=== PATIENT | female | born 1965 | race Caucasian/White ===

== ENCOUNTER 2017-01-09 09:00 | Emergency (ER) | payer OTHER ==
[~2017-01-09] VITALS: Ht 167.6 cm; Wt 85.0 kg
[2017-01-09 09:01] VITALS: BP 145/93; PULSE 100; RESP 20; TEMP 99.2; O2SAT 98
[2017-01-09] MEDS ORDERED: OMEP10CA PO (09:30)
[2017-01-09] MEDS ORDERED: ONDANSETRON ODT 4 MG TAB PO ONE (09:30)
[2017-01-09] MEDS ORDERED: oxyCODONE/ACETAMINOPHEN 5 MG/325 MG TAB PO ONE (09:30)
--- NOTE | 2017-01-09 10:27 | RADRPT ---
EXAM DATE/TIME: 01/09/2017 09:36 [facility] COMPARISON: No previous studies available for comparison. INDICATIONS : Fell last night, pain left arm and left side of chest MEDICAL HISTORY : None. SURGICAL HISTORY : None. ENCOUNTER: Initial ACUITY: 1 day PAIN SCORE: 10/10 LOCATION: Left chest FINDINGS: PA and lateral views of the chest demonstrate the lungs to be symmetrically aerated without evidence of mass, infiltrate or effusion. The cardiomediastinal contours are unremarkable. Scoliosis, left m id humerus fracture. CONCLUSION: Left mid humerus fracture. Negative for pneumothorax or displaced rib fracture. Johny Orourke MD FACR on January 09, 2017 at 10:24 Board Certified Radiologist. This report was verified electronically.
--- NOTE | 2017-01-09 10:28 | RADRPT ---
EXAM DATE/TIME: 01/09/2017 09:46 [facility] COMPARISON: No previous studies available for comparison. INDICATIONS : Fell last night, unable to move left arm, severe pain left shoulder to elbow MEDICAL HISTORY : None. SURGICAL HISTORY : None. ENCOUNTER: Initial ACUITY: 1 day PAIN SCORE: 10/10 LOCATION: Left shoulder FINDINGS: Two view examination of the left shoulder demonstrates no evidence of fracture or dislocation. The g lenohumeral and acromioclavicular joints are maintained. Bony mineralization is normal. Left lexi l fracture. CONCLUSION: Left mid humeral fracture with small butterfly fragment. Johny Orourke MD FACR on January 09, 2017 at 10:25 Board Certified Radiologist. This report was verified electronically.
--- NOTE | 2017-01-09 10:29 | RADRPT ---
EXAM DATE/TIME: 01/09/2017 09:48 [facility] COMPARISON: No previous studies available for comparison. INDICATIONS : Fell last night, pain left humerus, unable to move arm MEDICAL HISTORY : None. SURGICAL HISTORY : None. ENCOUNTER: Initial ACUITY: 1 day PAIN SCORE: 10/10 LOCATION: Left humerus FINDINGS: Fractured midshaft humerus with large butterfly fragment evident. CONCLUSION: Humeral fracture as above. Johny Orourke MD FACR on January 09, 2017 at 10:26 Board Certified Radiologist. This report was verified electronically.
--- NOTE | 2017-01-09 10:30 | RADRPT ---
EXAM DATE/TIME: 01/09/2017 09:50 [facility] COMPARISON: No previous studies available for comparison. INDICATIONS : Fell last night, left arm pain, unable to move arm MEDICAL HISTORY : None. SURGICAL HISTORY : None. ENCOUNTER: Initial ACUITY: 1 day PAIN SCORE: 10/10 LOCATION: Left elbow FINDINGS: Artifact is present across the elbow; joint appears intact.. Humerus is fractured CONCLUSION: Humeral fracture. Elbow joint is intact. Johny Orourke MD FACR on January 09, 2017 at 10:27 Board Certified Radiologist. This report was verified electronically.
--- NOTE | 2017-01-09 10:42 | PD ---
HPI Chief Complaint: Fall Time Seen by Provider: 09:13 Travel History International Travel<30 days: No Contact w/Intl Traveler<30days: No Traveled to known affect area: No History of Present Illness HPI Patient is a 51 year old female who comes in complaining of left arm pain after a fall last night. She says she does not really know what happened, but she tripped and fell up the stairs. She says she thinks she landed mostly on her left side and she does report hitting the back of her head. She had one episode of vomiting last night. She denies any chest pain or SOB. She says she has a bruise on her abdomen, but otherwise does not have abdominal pain. She denies neck or back pain or any numbness or tingling in her extremities. [facility] Past Medical History GERD: Yes ?: Not LMP: 1991 Past Surgical History Abdominal Surgery: Yes (hernia, abd muscle reconstruction ) Hysterectomy: Yes Social History Alcohol Use: Yes (occassionaly) Tobacco Use: No Substance Use: No Allergies-Medications (Allergen,Severity, Reaction): Coded Allergies: No Known Allergies (Unverified , 01/09/17) Reported Meds & Prescriptions Reported Meds & Active Scripts Active Reported Omeprazole 10 Mg Cap 10 Mg PO DAILY Review of Systems Except as stated in HPI: all other systems reviewed are Neg General / Constitutional: No: Fever, Chills Eyes: No: Blurred Vision HENT: Positive: Headaches Cardiovascular: No: Chest Pain or Discomfort Respiratory: No: Shortness of Breath Gastrointestinal: Positive: Nausea, No: Abdominal Pain Musculoskeletal: Positive: Edema, Pain Skin: Positive Other (ecchymosis), No Rash, No Change in Pigmentation Neurologic: No: Dizziness, Syncope Physical Exam Narrative GENERAL: Awake and alert, in no acute distress. SKIN: Focused skin assessment warm/dry. bruising to the right bicep, lower abdomen. HEAD: Atraumatic. Normocephalic. EYES: Pupils equal and round. No scleral icterus. EOMI ENT: Mucous membranes pink and moist. NECK: Trachea midline. No JVD. CARDIOVASCULAR: Regular rate and rhythm. No murmur appreciated. RESPIRATORY: No accessory muscle use. Clear to auscultation. Breath sounds equal bilaterally. GASTROINTESTINAL: Abdomen soft, non-tender, nondistended. MUSCULOSKELETAL: No obvious deformities. No clubbing. No cyanosis. Edema of the left humerus with tenderness to palpation of the left shoulder, humerus, elbow. Radial pulse intact. NEUROLOGICAL: Awake and alert. No obvious cranial nerve deficits. Motor grossly within normal limits. Normal speech. PSYCHIATRIC: Appropriate mood and affect; insight and judgment normal. Data Data Last Documented VS Vital Signs Date Time Temp Pulse Resp B/P (MAP) Pulse Ox O2 Delivery O2 Flow Rate FiO2 01/09/17 09:01 99.2 100 20 145/93 (110) 98 Room Air Orders Orders Humerus (Min 2vws) (01/09/17 ) Chest, Pa & Lat (01/09/17 ) Oxycodone-Acetamin 5-325 Mg (Percocet (01/09/17 09:30) Ondansetron Odt (Zofran Odt) (01/09/17 09:30) Ct Brain W/O Iv Contrast(Rout) (01/09/17 ) Shoulder, Limited(2vws) (01/09/17 ) Elbow, Limited (Ap&Lat) (01/09/17 ) Sling And Swathe (01/09/17 ) Iv Access Insert/Monitor (01/09/17 10:33) Complete Blood Count With Diff (01/09/17 10:33) Comprehensive Metabolic Panel (01/09/17 10:33) Act Partial Throm Time (Ptt) (01/09/17 10:33) Prothrombin Time / Inr (Pt) (01/09/17 10:33) Morphine Inj (Morphine Inj) (01/09/17 10:45) Ondansetron Inj (Zofran Inj) (01/09/17 10:45) Morphine Inj (Morphine Inj) (01/09/17 12:45) Radiology Film Requests (01/09/17 ) Labs Laboratory Tests Test 01/09/17 11:00 White Blood Count 9.2 TH/MM3 Red Blood Count 4.27 MIL/MM3 Hemoglobin 13.5 GM/DL Hematocrit 39.8 % Mean Corpuscular Volume 93.3 FL Mean Corpuscular Hemoglobin 31.6 PG Mean Corpuscular Hemoglobin Concent 33.9 % Red Cell Distribution Width 14.0 % Platelet Count 281 TH/MM3 Mean Platelet Volume 8.7 FL Neutrophils (%) (Auto) 69.2 % Lymphocytes (%) (Auto) 19.6 % Monocytes (%) (Auto) 10.6 % Eosinophils (%) (Auto) 0.1 % Basophils (%) (Auto) 0.5 % Neutrophils # (Auto) 6.3 TH/MM3 Lymphocytes # (Auto) 1.8 TH/MM3 Monocytes # (Auto) 1.0 TH/MM3 Eosinophils # (Auto) 0.0 TH/MM3 Basophils # (Auto) 0.0 TH/MM3 CBC Comment DIFF FINAL Differential Comment Prothrombin Time 10.7 SEC Prothromb Time International Ratio 1.1 RATIO Activated Partial Thromboplast Time 30.3 SEC Blood Urea Nitrogen 12 MG/DL Creatinine 0.80 MG/DL Random Glucose 106 MG/DL Total Protein 6.8 GM/DL Albumin 3.5 GM/DL Calcium Level 8.5 MG/DL Alkaline Phosphatase 99 U/L Aspartate Amino Transf (AST/SGOT) 37 U/L Alanine Aminotransferase (ALT/SGPT) 41 U/L Total Bilirubin 0.9 MG/DL Sodium Level 140 MEQ/L Potassium Level 4.1 MEQ/L Chloride Level 106 MEQ/L Carbon Dioxide Level 26.9 MEQ/L Anion Gap 7 MEQ/L Estimat Glomerular Filtration Rate 75 ML/MIN [facility] Medical Decision Making Medical Screen Exam Complete: Yes Emergency Medical Condition: Yes Differential Diagnosis shoulder fracture vs humeral fracture vs sprain Narrative Course Patient is a 51 year old female who comes in complaining of pain to her left arm. Exam shows swelling and tenderness to the left humerus. XR performed shows mid-shaft humeral fracture with a butterfly fragment. Patient given pain medicine, placed in a sling. Orthopedics consulted. Per Dr. Pedroza, patient can be placed in a posterior long arm splint and follow up in the office. He says even with the butterfly fragment, it should heal on its own. He was advised patient is from [place], and will be following up at home. Splint placed. Patient given a prescription for pain medicine and advised to follow up with orthopedics as soon as possible. Advised to return to an ED as needed for any worsening symptoms. Diagnosis Primary Impression: Humeral shaft fracture Qualified Codes: S42.322A - Displaced transverse fracture of shaft of humerus , left arm, initial encounter for closed fracture Patient Instructions: Arm Fracture in Adults (ED), General Instructions Additional Instructions: Take pain medicine as needed. Do not get her splint wet. Follow-up with orthopedics as soon as possible. Return to the ED as needed for any worsening symptoms. Scripts Oxycodone-Acetaminophen (Percocet) 5-325 mg Tab 1 TAB PO Q6H Y for PAIN, #20 TAB 0 Refills Prov: Kalyani Caban MD 01/09/17 Disposition: 01 DISCHARGE HOME Condition: Stable Kalyani Caban MD Jan 09, 2017 10:41
[2017-01-09] MEDS ORDERED: ONDANSETRON HCL 4 MG/2 ML VIAL IV PUSH ONE (10:45)
[2017-01-09] MEDS ORDERED: MORPHINE SULFATE 4 MG/ML INJ IV PUSH ONE ×3 (10:45→14:15)
[2017-01-09 11:12] LABS: AUTOMATED NEUTROPHIL # 6.3 TH/MM3 (1.8-7.7); BASOPHIL % 0.5 % (0.0-2.0); EOSINOPHIL % 0.1 % (0.0-4.0); HEMATOCRIT 39.8 % (35.0-46.0); HEMO FLAGS DIFF FINAL; LYMPH % 19.6 % (9.0-44.0); LYMPHOCYTE # 1.8 TH/MM3 (1.0-4.8); MEAN CELL VOLUME 93.3 FL (80.0-100.0); MEAN CORPUSCULAR HEMOGLOBIN 31.6 PG (27.0-34.0); MEAN CORPUSCULAR HGB CONC 33.9 % (32.0-36.0); MONO % 10.6 % (0.0-8.0); NEUT % 69.2 % (16.0-70.0); PLATELET COUNT 281 TH/MM3 (150-450); RED BLOOD COUNT 4.27 MIL/MM3 (4.00-5.30); WHITE BLOOD COUNT 9.2 TH/MM3 (4.0-11.0)
[2017-01-09 11:20] LABS: APTT (PATIENT) 30.3 SEC (24.3-30.1); INTERNATIONAL NORMALIZED RATIO 1.1 RATIO; PROTHROMBIN TIME - PATIENT 10.7 SEC (9.8-11.6)
[2017-01-09 11:27] LABS: ALKALINE PHOSPHATASE 99 U/L (45-117); TOTAL BILIRUBIN ADULT 0.9 MG/DL (0.2-1.0)
[2017-01-09 11:36] LABS: ALT (GPT) 41 U/L (10-53); ANION GAP 7 MEQ/L (5-15); AST (GOT) 37 U/L (15-37); BICARBONATE 26.9 MEQ/L (21.0-32.0); BLOOD UREA NITROGEN 12 MG/DL (7-18); CHLORIDE 106 MEQ/L (98-107); GLOMERULAR FILTRATION RATE 75 ML/MIN (>89); POTASSIUM 4.1 MEQ/L (3.5-5.1); SODIUM (NA) 140 MEQ/L (136-145)
--- NOTE | 2017-01-09 11:41 | RADRPT ---
EXAM DATE/TIME: 01/09/2017 11:10 [facility] COMPARISON: No previous studies available for comparison. INDICATIONS : Fell up the stairs and hit head, Loss of consciousness. RADIATION DOSE: 38.72 CTDIvol (mGy) MEDICAL HISTORY : None SURGICAL HISTORY : None. ENCOUNTER: Initial ACUITY: 1 day PAIN SCALE: 3/10 LOCATION: cranial TECHNIQUE: Multiple contiguous axial images were obtained of the head. Using automated exposure control and adj ustment of the mA and/or kV according to patient size, radiation dose was kept as low as reasonably a chievable to obtain optimal diagnostic quality images. DICOM format image data is available electro nically for review and comparison. FINDINGS: There is a 3.5 cm CSF density mass/collection in the midline above and posterior to the quadrigeminal plate cistern which is likely an arachnoid cyst. The brain is also where symmetric and unremarkable. Is no evidence of hemorrhage. There is nothing to suggest acute infarction. No parenchymal edema is identified. The sinuses and mastoids are clear. Calvarium is intact. CONCLUSION: Probable arachnoid cyst in the upper midline posterior fossa. Further characterization with contraste d MRI would ideally be suggested though not necessarily on an urgent basis Darren Plummer MD on January 09, 2017 at 11:25 Board Certified Radiologist. This report was verified electronically.
[2017-01-09] MEDS ORDERED: PERC5TAB12 PO (13:23)
== END 2017-01-09 14:24 | disposition home or self-care (01) ==
LOC: NEPD 09:00
DX: S42.302A Unspecified fracture of shaft of humerus, left arm, initial encounter for closed fracture (principal); R11.10 Vomiting, unspecified; K21.9 Gastro-esophageal reflux disease without esophagitis; W01.0XXA Fall on same level from slipping, tripping and stumbling without subsequent striking against object, initial encounter; Z79.899 Other long term (current) drug therapy
CPT/HCPCS: 70450; 71020; 73030; 73060; 73070; 80053; 85025; 85610; 85730; 96374; 96375; 96376; 99285; J2270; J2405